=== PATIENT | female | born 2005 | race Caucasian/White ===

== ENCOUNTER → 2025-04-22 09:00 | Outpatient (CLI) | payer SELFPAY ==
[2025-04-22 19:18] LABS: Add Manual Diff / Slide Review NO; Hematocrit 38.6 % (36-46); Hemoglobin 13.5 g/dL (12.0-16.0); Lymphocytes Absolute Auto 2200 /uL (1100-4500); Mean Corpuscular HGB Conc 35.0 % (30-36); Mean Corpuscular Hemoglobin 31.6 PG (26-34); Mean Corpuscular Volume 90.3 fL (80-100); Platelet Count 250 X10^3/uL (150-400)
[2025-04-22 19:23] LABS: HEMOLYSIS < 15 (0-50)
[2025-04-22 19:28] LABS: Alanine Aminotransferase 12 IU/L (<35); Albumin 4.7 g/dL (3.5-5.0); Albumin Globulin Ratio 1.6 (1.0-2.8); Alkaline Phosphatase 69 U/L (38-126); Blood Urea Nitrogen 10 mg/dL (7-17); Calcium 9.4 mg/dL (8.4-10.2); Carbon Dioxide 28 mmol/L (22-32); Chloride 101 mmol/L (98-107); Estimated Glomerular Filt Rate > 60 mL/min (>60); Globulin 3.0 g/dL (1.7-4.1); Glucose 92 mg/dL (70-99); HEMOLYSIS < 15 (0-50); Potassium 4.1 mmol/L (3.4-5.1); Sodium 138 mmol/L (137-145); Total Protein 7.7 g/dL (6.3-8.2)
[2025-04-22 19:45] LABS: Vitamin D 25 Hydroxy (D3) 45.6 ng/mL (30.0-100.0)
[2025-04-22 19:50] LABS: Free T4, Direct Thyroxine 0.82 ng/dL (0.78-2.19)
[2025-04-22 19:52] LABS: Total Iron Binding Capacity 339 ug/dL (265-497); Transferrin 283 mg/dL (206-381)
[2025-04-22 20:03] LABS: Ferritin 19 ng/mL (6-137); Thyroid Stimulating Hormone 0.505 uIU/mL (0.47-4.68)
[2025-04-22 20:40] LABS: Folate 9.0 ng/mL (2.76-20.0); Vitamin B12 303 pg/mL (239-931)
[2025-04-24 14:36] LABS: Iron 92 ug/dL (37-170); Percent Iron Saturation 27 % (15-50)
== END ==
PROVIDERS: PCP Pediatrics; Visit Provider Pediatrics
DX: F42.2 Mixed obsessional thoughts and acts (principal); F41.1 Generalized anxiety disorder; F33.41 Major depressive disorder, recurrent, in partial remission
CPT/HCPCS: 80053; 82306; 82607; 82728; 82746; 82784; 83090; 83516; 83540; 83550; 84439; 84443; 84630; 85025